=== PATIENT | female | born 1985 | race African-American/Black ===

== ENCOUNTER 2021-02-28 20:26 | Emergency (ER) | payer OTHER ==
[~2021-02-28] VITALS: Ht 162.6 cm; Wt 61.2 kg
[2021-02-28 20:58] LABS: BILIRUBIN,URINE Negative (NEGATIVE); COLOR,URINE YELLOW (YELLOW); LEUKOCYTE ESTERASE ,URINE Negative (NEGATIVE); NITRITE, URINE Negative (NEGATIVE); PH,URINE 5.5 (5.0-8.0); PROTEIN,URINE Trace mg/dl (NEGATIVE); UGLUCOSE Negative (NEGATIVE)
[2021-02-28 20:59] LABS: BASOPHILS % (AUTO) 0.4 % (0.0-2.0); EOSINOPHILS % (AUTO) 0.4 % (0.0-6.0); HEMATOCRIT 34 % (33-45); HEMOGLOBIN 10.9 g/dL (11.5-14.8); LYMPHOCYTES # (AUTO) 1.5 K/uL (0.8-4.8); LYMPHOCYTES % (AUTO) 17.3 % (20.0-44.0); MEAN CORPUSCULAR HGB CONC 32 g/dl (31.0-36.0); MEAN CORPUSCULAR VOLUME 96 fL (82-100); MONOCYTES # (AUTO) 1.2 K/uL (0.1-1.30); NEUTROPHILS % (AUTO) 67.9 % (43.0-81.0); PLATELET COUNT (AUTO) 245 K/uL (150-450); RED BLOOD CELL COUNT(AUTO) 3.51 MIL/uL (4.0-5.2); WHITE BLOOD COUNT (AUTO) 8.9 K/uL (4.3-11.0)
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
[2021-02-28 21:02] LABS: BACTERIA,URINE Rare /HPF (None Seen); RBC,URINE NONE SEEN /HPF (0-2); SQUAMOUS EPITHELIAL CELL,UR Few /HPF (None Seen); WBC,URINE NONE SEEN /HPF (0-3)
[2021-02-28 21:25] LABS: CALCIUM, SERUM 8.1 mg/dL (8.5-10.1); CARBON DIOXIDE 28 mmol/L (21-32); CHLORIDE 104 mmol/L (98-107); CREATININE 0.8 mg/dL (0.6-1.3); GLUCOSE 100 mg/dL (74-106); POTASSIUM 3.8 mmol/L (3.5-5.1); SODIUM SERUM 139 mmol/L (136-145); UREA NITROGEN, BLOOD 7 mg/dL (7-18)
[2021-02-28 21:31] LABS: ALANINE AMINOTRANSFERASE 30 U/L (12-78); ALBUMIN 2.9 g/dL (3.4-5.0); ALCOHOL, BLOOD < 3 mg/dL (0-0); ALKALINE PHOSPHATASE 84 U/L (46-116); ASPARTATE AMINOTRANSFERASE 30 U/L (15-37); BILIRUBIN,DIRECT 0.2 mg/dL (0.0-0.2); BILIRUBIN,TOTAL 0.6 mg/dL (0.2-1.0)
[2021-02-28 21:33] LABS: ACETAMINOPHEN < 10 ug/ml (10-30)
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
[2021-02-28] MEDS ORDERED: ACETAMINOPHEN ES 500 MG TABLET ONE (22:45)
[2021-02-28] MEDS ORDERED: ACETAMINOPHEN ES 500 MG TABLET PO ONE (23:00)
--- NOTE | 2021-02-28 23:03 | NUR ---
ZONIA GOMEZ AT BEDSIDE TO [facility].
--- NOTE | 2021-02-28 23:18 | NUR ---
CLINICAL AND FACESHEET FAXED TO [facility]TA[facility] FOR VOLUNTARY PSYCH ADMISSION.
[2021-02-28] MEDS ORDERED: OLANZAPINE 5 MG TABLET PO ONE (23:30)
[2021-02-28] MEDS ORDERED: OLANZAPINE 5 MG TABLET ONE (23:37)
--- NOTE | 2021-03-01 00:27 | NUR ---
PT ASLEEP, PROVIDED WITH BLANKETS. VSS. SITTER AT BEDSIDE.
--- NOTE | 2021-03-01 03:58 | NUR ---
TRANSFER INFORMATION: PT ACCEPTED TO [facility] ACCEPTING MD: DR. SOARES NUMBER FOR REPORT: [phone] EXT [phone]
--- NOTE | 2021-03-01 04:06 | NUR ---
CALLED CALL THE CAR FOR TRANSPORTATION, WILL CALL BACK WITH ETA. RESERVATION #[id number]
--- NOTE | 2021-03-01 04:18 | NUR ---
ETA 0615 [facility]
--- NOTE | 2021-03-01 05:01 | NUR ---
REPORT GIVEN TO OCTAVIO RED FOR YUDY
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
[2021-03-01 07:07] VITALS: BP 128/73
== END 2021-03-01 07:09 ==
LOC: ER 20:32
DX: R45.851 Suicidal ideations (principal); R45.850 Homicidal ideations; F20.9 Schizophrenia, unspecified; S82.002A Unspecified fracture of left patella, initial encounter for closed fracture; Y09 Assault by unspecified means; Y92.89 Other specified places as the place of occurrence of the external cause; Y99.8 Other external cause status; Z20.822 Contact with and (suspected) exposure to COVID-19; M25.461 Effusion, right knee; D64.9 Anemia, unspecified
CPT/HCPCS: 29505; 36415; 73564; 80048; 80076; 80143; 80307; 80320; 81001; 84703; 85025; 87426; 99285; C9803; G0480